=== PATIENT | female | born 1995 | race Two or more races ===

== ENCOUNTER → 2018-12-19 | Emergency (ER) | payer OTHER ==
[~2018-12-19] VITALS: Ht 152.4 cm; Wt 56.7 kg
[~2018-12-19] MED LIST: INMODIUN; PEPCID40 MG PO; ZANTAC 7575 MG; ZOFRAN ODT4 MG PO
== END | disposition home or self-care (01) ==
LOC: ER 20:38
DX: K52.9 Noninfective gastroenteritis and colitis, unspecified (principal)